=== PATIENT | female | born 1950 | race Caucasian/White ===

== ENCOUNTER → 2017-09-19 | Outpatient (CLI) | payer OTHER ==
[2017-09-16 08:44] VITALS: BP 108/67
[2017-09-16 08:59] LABS: HEMATOCRIT 35.9 % (37.0-47.0); HEMOGLOBIN 12.3 gm/dL (12.0-15.0); MCH 30.9 pg (26.0-34.0); MCHC 34.3 g/dL (28.0-37.0); MCV 90.2 fL (80.0-100.0); RBC 3.98 mil/uL (4.20-5.00); RDW 14.2 % (10.5-14.5); WBC 5.1 thou/uL (4.0-11.0)
[2017-09-16 09:07] LABS: CALCIUM 8.8 mg/dL (8.5-10.1); CREATININE 1.4 mg/dL (0.6-1.0); POTASSIUM 3.8 mmol/L (3.5-5.1)
[2017-09-16 09:13] LABS: APTT 25.5 Seconds (24.5-32.8); INR 1.1; PROTIME 11.3 Seconds (9.3-11.4)
[~2017-09-19] VITALS: Ht 165.1 cm; Wt 76.2 kg
[2017-09-19] VITALS (10 sets, daily range): BP systolic 116–147; BP diastolic 62–81
[~2017-09-19] MED LIST: ACETAMINOPHEN325 M3 PO; ADULT LOW DOSE81 MG PO; ALBUTEROL2.5 MG/31 INH; ALDACTONE100 MG PO; AMBIEN 5 MG TABL5 M1 PO; AZITHROMYCIN 2250 MG PO; BUSPIRONE HCL5 MG PO; CALCIUM 600 +1 EAC1 PO; CARAFATE 1 GM TA1 G1 PO; CEFTIN 250 MG250 MG PO; COLACE100 MG PO; CONSTULOSE10 GM/152 PO; DUONEB 2.5-0.5 M3 ML INH; DURAGESIC1 EAC3 TRANSDERM; FENTANYL PA50 MCG/HR TRANSDERM; FISH OIL 1,001000 M2 PO; IRON325 PO; LASIX 20 MG TAB20 MG PO; LASIX 40 MG TAB40 M2 PO; MAGIC MOUTHWASH PO; MAGNESIUM OXID400 MG PO; MIRAPEX0.125 MG PO; MULTI-DAY VITA1 EACH PO; NASONEX17 GM NASAL; NICOTINE TRANSD21 M1 TD; NITROGLYCERIN0.4 MG; OXYCODONE HCL30 MG PO; PHENERGAN 25 MG25 M1 PO; POTASSIUM20 PO; PREDNISONE 5 MG5 M1 PO; PROBIOTIC1 EAC1 PO; PROTONIX40 M1 PO; ROCEPHIN 11 GM/1001 IVPB; ROXICODONE30 M1 PO; TYLENOL325 MG PO; VENTOLIN HFA 1818 GM INH; ZANTAC 150MG T150 MG PO; ZITHROMAX500 M1 IVPB; ZOFRAN ODT4 MG DISSOLVE
--- NOTE | ~2017-09-19 | CNG ---
[facility] [place] [address] CYTO-NONGYN REPORT PROCEDURE Name: MEGAN HOLLEY Room #: [facility] Jeanne.#: [id number] Admission: 09/19/17 Date of : 54 Discharge: Report #: [id number] Path Case #: [id number] CYTOPATHOLOGY REPORT COLLECTION DATE: 09/19/2017 RECEIVED DATE: 09/19/2017 SUBMITTING PHYS: Dr. Jaden Hinojosa OTHER PHYS: Dr. Xavier Lehman CLINICAL HISTORY: Abnormal CT scan SPECIMEN(S) RECEIVED: A.Fine needle aspiration,Left lung biopsy aspirate * * * * * * * * * * * * FINAL DIAGNOSIS: Fine needle aspiration, left lung biopsy aspirate: - Atypical cells present. - Markedly atypical squamous epithelial cells present in a reactive stroma with marked chronic inflammation and abundant fresh hemorrhage (see comment). (CLW:sarita; 09/20/2017) COMMENT: Cytomorphological examination of Diff-Quik stained slides and a cell block show collections of highly atypical squamous epithelial cells present in a reactive stroma with dense chronic inflammation and abundant admixed fresh hemorrhage. 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 Clinical and radiographic correlation is required. The case is co-reviewed with Dr. Stephanie Park and Dr. Rolando Mabry. (CLW:sarita; 09/20/2017) PATHOLOGIST: Cassi Casey M.D. REPORT ELECTRONICALLY SIGNED BY: Cassi Casey M.D. DATE/TIME: 09/20/2017 16:39 * * * * * * * * * * * * GROSS PATHOLOGY: A. Fine needle aspiration,Left lung biopsy aspirate: The specimen is labeled "Megan Holley" and consists of four air dried slides. Fifty-five mL of cloudy brown fluid in formalin from the needle rinse is also submitted and a formalin fixed cell block only was prepared from this material. (mm 09.19.2017) TRAINS DISPATCHER SUPERVISOR(S): SAMIA Godinez([facility]) INITIAL CPT CODE(S): [address] [address] CYTO-NONGYN REPORT PROCEDURE Name: MEGAN HOLLEY Room #: [facility].#: [id number] Admission: 09/19/17 Date of : 54 Discharge: Report #: [id number] Path Case #: [id number]; [id number], [id number] Professional services performed by [facility] at [address] , [place] [address] [facility] by [facility] at [address] [place] [address]., [address], [place] [address]. [facility] [address] [place] [address], [address] [place] [address] PHONE: [phone] DIRECTOR: Juanpablo W. Placido, M.D. * * * END OF REPORT * * *
== END | disposition home or self-care (01) ==
LOC: CAT 09-16 08:00
PROVIDERS: Radiology Diagnostic Radiology
DX: R91.1 Solitary pulmonary nodule (principal); I21.3 ST elevation (STEMI) myocardial infarction of unspecified site; J44.9 Chronic obstructive pulmonary disease, unspecified; F41.9 Anxiety disorder, unspecified; K21.9 Gastro-esophageal reflux disease without esophagitis; I11.0 Hypertensive heart disease with heart failure; I50.9 Heart failure, unspecified; G89.4 Chronic pain syndrome; Z82.49 Family history of ischemic heart disease and other diseases of the circulatory system